=== PATIENT | male | born 1960 | race Caucasian/White ===

== ENCOUNTER → 2018-05-22 | Outpatient (CLI) | payer OTHER ==
[~2018-05-22] MED LIST: CHOL100010 PO; CRF1 PO; FLAX SEED PO; GADAVIST IV PRN; LRT5 PO; MULT-506 PO
--- NOTE | 2018-05-22 09:44 | DIAGNOSTIC IMAGING REPORT ---
ORBIT RADIOGRAPHS 3 VIEWS HISTORY: pre-MRI screening. COMPARISON: None. FINDINGS: There are no radiopaque foreign bodies identified within the orbits. IMPRESSION: No radiopaque foreign bodies identified within the orbits. Electronically signed by: Franko Muse M.D. 05/22/2018 9:43 AM Dictated Date/Time: 05/22/2018 9:42 AM
--- NOTE | 2018-05-22 12:09 | DIAGNOSTIC IMAGING REPORT ---
BRAIN COMBO FOR PITUITARY CLINICAL HISTORY: 57 years-old Male presenting with low testosterone. TECHNIQUE: Multisequence, multiplanar MR imaging of the brain was performed before and after the administration of intravenous contrast. Dedicated sequences of the pituitary gland were performed including dynamic postcontrast imaging. IV contrast: 10.5 mL of Gadavist. COMPARISON: None. FINDINGS: Localizer images: Unremarkable. Ventricles and sulci normal in size. Extensive periventricular and subcortical white matter T2/FLAIR hyperintensity, nonspecific. No mass effect or midline shift. No restricted diffusion to suggest acute ischemia. No hemorrhage. No extra-axial fluid collection. T2 skull base flow voids preserved. No abnormal parenchymal enhancement. The pituitary is normal in size and enhancement. An apparent nodule immediately to the left lateral aspect (series 11 image 23; series 12 image 9) is outside of the pituitary gland on precontrast imaging. Bone marrow signal intensity within the calvarium within normal limits. Trace mucosal thickening in the right maxillary sinus. IMPRESSION: 1. Extensive periventricular and subcortical white matter T2/FLAIR signal abnormality, which is advanced for the patient's age if this were to represent chronic small vessel ischemic change. Other diagnostic considerations include demyelinating disease or infection among other etiologies. Correlate clinically. 2. Normal dynamic contrast-enhanced MR examination of the pituitary gland. Electronically signed by: Donnell Hughes M.D. 05/22/2018 12:08 PM Dictated Date/Time: 05/22/2018 11:34 AM
== END | disposition home or self-care (01) ==
LOC: C.MRI 09:14
PROVIDERS: ATTEND Internal Medicine Endocrinology, Diabetes & Metabolism
DX: E29.1 Testicular hypofunction (principal); E88.81 Metabolic syndrome and other insulin resistance; R79.89 Other specified abnormal findings of blood chemistry